=== PATIENT | female | born 1995 | race Caucasian/White ===

== ENCOUNTER 2018-04-21 01:52 | Inpatient (IN) | payer BC ==
[2018-04-21] MEDS ORDERED: Oxytocin 30 UNIT 30 UNITS/500 ML BAG IV ONE ×2 (02:49→04:34)
[2018-04-21] MEDS ORDERED: Lactated Ringer's 1,000 ML IV SCH (03:00)
[2018-04-21] MEDS ORDERED: Penicillin G 5 Million Unit Vial IVPB ONE (03:08)
[2018-04-21 03:42] LABS: BASO % 0.2 % (0.0-2.0); EOS # 0.1 K/uL (0.0-0.7); EOS % 0.7 % (0.0-4.0); HEMOGLOBIN 11.5 g/dL (11.0-16.0); LYMPH # 2.3 K/uL (1.0-4.3); LYMPH % 20.7 % (20.0-40.0); MEAN CELL VOLUME 71.7 fL (81.0-99.0); MEAN CORPUSCULAR HEMOGLOBIN 24.5 pg (27.0-31.0); MEAN CORPUSCULAR HGB CONC 34.2 g/dL (33.0-37.0); MEAN PLATELET VOLUME 8.7 fL (7.2-11.7); MONO # 0.8 K/uL (0.0-0.8); MONO % 6.9 % (0.0-10.0); NEUT % 71.5 % (50.0-75.0); RBC 4.7 Mil/uL (3.80-5.20); RED CELL DISTRIBUTION WIDTH 15.3 % (11.5-14.5); WHITE BLOOD COUNT 11.2 K/uL (4.8-10.8)
[2018-04-21 03:45] LABS: SQUAMOUS EPITHIAL < 1 /hpf (0-5); URINE BACTERIA RARE (<OCC); URINE BILIRUBIN NEGATIVE (NEGATIVE); URINE BLOOD NEGATIVE (NEGATIVE); URINE CLARITY Clear (Clear); URINE COLOR Straw (YELLOW); URINE GLUCOSE (UA) NORMAL (Normal); URINE LEUKOCYTE ESTERASE NEG Leu/uL (Negative); URINE PROTEIN NEGATIVE (NEGATIVE); URINE UROBILINOGEN NORMAL mg/dL (0.2-1.0)
[2018-04-21 03:58] LABS: ALB/GLOB RATIO 1.2 (1.0-2.1); ALBUMIN 3.8 g/dL (3.5-5.0); ALT/SGPT 21 U/L (9-52); AST/SGOT 15 U/L (14-36); BLOOD UREA NITROGEN 8 mg/dL (7-17); CALCIUM 8.9 mg/dl (8.6-10.4); GFR AFRICAN-AMERICAN > 60; GFR NON-AFRICAN AMERICAN > 60
[2018-04-21 04:29] LABS: HEPATITIS B SURFACE AG Negative (NEGATIVE)
[2018-04-21 06:43] LABS: T4 18.9 ug/dL (5.5-11.0)
[2018-04-21 06:56] LABS: T3 1.64 nmol/L (1.49-2.60)
--- NOTE | 2018-04-21 07:49 | OBHP ---
Datetime: 04/21/2018 02:30 IP Adm Impression: Term, intrauterine ; Ruptured Membranes IP Admit Plan: Admit to unit; Initiate labor augmentation protocol Admit Comment, IP Provider: 22 yo female G1 with an IUP at 37 3/7 weeks and present with a Hx of lar ge gush of clear fluid since 8 PM on 04/20 but later she changed her mind and she ruptured at 10PM. Adm its to adequate FM and denies any vaginal bleeding. FHT's reactive and reassuring + pooling of Amniotic fluid + Hx of Gestational Diabetes-diet Control and FS BS's from patient reviewed and WNL for the most p art Hx of Hypothyroidism and on 100 mcg daily GBS unknown Dr. Sheppard notified and she requested to be cover by Hospitalist Will admit patient and start on Pitocin for Augmentation of labor Pelvic Type - PN: Adequate Extremities - PN: Normal Abdomen - PN: Normal Back - PN: Normal Breast - PN: Not Done Lungs - PN: Normal Heart - PN: Normal Thyroid - PN: Normal Neurologic - PN: Normal HEENT - PN: Normal General - PN: Normal Presentation-Admit: Vertex FHR - Baseline A Provider: 130 Amniotic Fluid Color, Provider: Clear Membranes, Provider: Ruptured Gestation - Est Wks by US: 37 3/7 EGA AdmitDate IP: 37.3 Vital Signs Provider: Reviewed IP Chief Complaint: Suspected ruptured membranes NICHD Variability Prov Fetus A: Moderate 6-25bpm NICHD Accel Fetus A IP Provider: 10X10 FHR Category Provider Fetus A: Category I NICHD Decel Fetus A IP Provider: None Dilatation, Provider: 0 Effacement, Provider: 50 Station, Provider: -3 Genitourinary Exam: Normal DTRs - PN: Normal
--- NOTE | 2018-04-21 07:59 | OBADHP ---
Datetime: 04/21/2018 03:51 Admit Comment, IP Provider: 22 yo female G1 with an IUP at 37 3/7 weeks with SROM since 10 PM last n ite. Admits to adequate FM and denies any vaginal bleeding. FHT's reactive and reassuring + Hx of Gestational Diabetes-diet Control and FS BS's from patient reviewed and WNL for the most p art Hx of Hypothyroidism and on 100 mcg daily GBS unknown and will start on Antibiotic Prophylaxis Dr. Sheppard notified and she requested to be cover by Hospitalist Will admit patient and start on Pitocin for Augmentation of labor Anticipate a Vaginal Delivery Pelvic Type - PN: Adequate Extremities - PN: Normal Abdomen - PN: Normal Back - PN: Normal Breast - PN: Not Done Lungs - PN: Normal Heart - PN: Normal Thyroid - PN: Normal Neurologic - PN: Normal HEENT - PN: Normal General - PN: Normal FHR - Baseline A Provider: 130 Membranes, Provider: Ruptured Contraction Comments Provider: Ocassional Gestation - Est Wks by US: 37 3/7 Vital Signs Provider: Reviewed IP Chief Complaint: Suspected ruptured membranes FHR Category Provider Fetus A: Category I Dilatation, Provider: 0 Effacement, Provider: 50 Station, Provider: -3 Genitourinary Exam: Normal DTRs - PN: Normal EGA AdmitDate IP: 37.3 IP Adm Impression: Term, intrauterine ; Ruptured Membranes IP Admit Plan: Admit to unit; Initiate labor augmentation protocol Datetime: 04/21/2018 02:30 Presentation-Admit: Vertex Amniotic Fluid Color, Provider: Clear NICHD Variability Prov Fetus A: Moderate 6-25bpm NICHD Accel Fetus A IP Provider: 10X10 NICHD Decel Fetus A IP Provider: None
[2018-04-21] MEDS ORDERED: Nalbuphine HCL 10 mg/ml Ampule IVP STA (10:21)
[2018-04-21] MEDS ORDERED: Nalbuphine HCL 10 mg/ml Ampule ONE (10:56)
[2018-04-21] MEDS ORDERED: Lidocaine 2% MPF (5 ml) Inj ONE (14:38)
--- NOTE | 2018-04-21 14:52 | OBDS ---
MATERNAL INFORMATION Provider Comments: pt was fully dilated and pushing. Atrumatic, spontanous delivery of head. atrumat ic, spontanosud eliveyr of anterior followed by posterior soulder followed by delivery of the body. Both oral and nasal passages of the baby were bulb suctioned. Umbilical cord was clamped and cut. ba by handed to mother on abdomen with rn assistnace. fundus firm at level of umbilucs. first degree pe rineal laceration repaired with 2-0 chromic. good hemostasis ,no complicatins. live male ifnat agpars 9,9 ebl 200ml weight of 5lb 1 ounces LABOR SUMMARY EDC: 05/09/2018 00:00 MEMBRANES Membranes Rupture Method: Spontaneous Rupture of Membranes: 04/20/2018 20:00 Length of Rupture (hrs): 18.48 Amniotic Fluid Color: Clear Amniotic Fluid Amount: Moderate Amniotic Fluid Odor: Normal BABY A INFORMATION Infant Delivery Date/Time: 04/21/2018 14:29 Method of Delivery: Vaginal SHOULDER DYSTOCIA BABY A Infant Delivery Date/Time: 04/21/2018 14:29 SCORES BABY A Heart Rate 1 min: >100 bpm Resp Effort 1 min: Good Cry Reflex Irritability 1 min: Cough or Sneeze or Pulls Away Muscle Tone 1 min: Active Motion Color 1 min: Body [place], Extremities Blue SCORE 1 MIN: 9 Heart Rate 5 min: >100 bpm Resp Effort 5 min: Good Cry Reflex Irritability 5 min: Cough or Sneeze or Pulls Away Muscle Tone 5 min: Active Motion Color 5 min: Body [place], Extremities Blue SCORE 5 MIN: 9 INFORMATION BABY A Gestational Age at Delivery: 37.2 Infant Condition : Stable Infant Sex: Male IDENTIFICATION/MEDS BABY A ID Band Number: [id number] Sensor Number: [id number] WEIGHT/LENGTH BABY A Infant Birthweight (gms): 2305 Infant Weight (lb): 5 Infant Weight (oz): 1 Infant Length Inches: 18.50 Infant Length cms: 47.0
--- NOTE | 2018-04-21 14:52 | OBHP ---
Datetime: 04/21/2018 03:51 IP Adm Impression: Term, intrauterine ; Ruptured Membranes IP Admit Plan: Admit to unit; Initiate labor augmentation protocol Admit Comment, IP Provider: 22 yo female G1 with an IUP at 37 3/7 weeks with SROM since 10 PM last n ite. Admits to adequate FM and denies any vaginal bleeding. FHT's reactive and reassuring + Hx of Gestational Diabetes-diet Control and FS BS's from patient reviewed and WNL for the most p art Hx of Hypothyroidism and on 100 mcg daily GBS unknown and will start on Antibiotic Prophylaxis Dr. Sheppard notified and she requested to be cover by Hospitalist Will admit patient and start on Pitocin for Augmentation of labor Anticipate a Vaginal Delivery agree with aove @ 37+ wks GDMA1 with ROM in wearly labor prom admit for IOL Pelvic Type - PN: Adequate Extremities - PN: Normal Abdomen - PN: Normal Back - PN: Normal Breast - PN: Not Done Lungs - PN: Normal Heart - PN: Normal Thyroid - PN: Normal Neurologic - PN: Normal HEENT - PN: Normal General - PN: Normal FHR - Baseline A Provider: 130 Membranes, Provider: Ruptured Contraction Comments Provider: Ocassional Gestation - Est Wks by US: 37 3/7 EGA AdmitDate IP: 37.3 Vital Signs Provider: Reviewed IP Indication for Induction: Not Applicable IP Chief Complaint: Suspected ruptured membranes FHR Category Provider Fetus A: Category I Dilatation, Provider: 0 Effacement, Provider: 50 Station, Provider: -3 Genitourinary Exam: Normal DTRs - PN: Normal
[2018-04-21] MEDS ORDERED: Oxycodone/Acetaminophen 5/325 mg Tab PO PRN ×2 (14:53)
[2018-04-21] MEDS: Benzocaine/Menthol 20%-0.5% Topical Spray (60 ml) TOP PRN (17:17)
[2018-04-22 08:16] LABS: BASO % 0.3 % (0.0-2.0); EOS # 0.1 K/uL (0.0-0.7); EOS % 0.6 % (0.0-4.0); HEMOGLOBIN 10.2 g/dL (11.0-16.0); LYMPH # 2.7 K/uL (1.0-4.3); LYMPH % 20.9 % (20.0-40.0); MEAN CELL VOLUME 72.4 fL (81.0-99.0); MEAN CORPUSCULAR HEMOGLOBIN 24.2 pg (27.0-31.0); MEAN CORPUSCULAR HGB CONC 33.5 g/dL (33.0-37.0); MEAN PLATELET VOLUME 8.3 fL (7.2-11.7); MONO # 0.8 K/uL (0.0-0.8); NEUT # 9.4 K/uL (1.8-7.0); NEUT % 72.2 % (50.0-75.0); RBC 4.2 Mil/uL (3.80-5.20); RED CELL DISTRIBUTION WIDTH 15.6 % (11.5-14.5); WHITE BLOOD COUNT 13.1 K/uL (4.8-10.8)
[2018-04-22 08:41] LABS: ALB/GLOB RATIO 1.1 (1.0-2.1); ALBUMIN 2.9 g/dL (3.5-5.0); ALT/SGPT 26 U/L (9-52); AST/SGOT 29 U/L (14-36); BLOOD UREA NITROGEN 9 mg/dL (7-17); CALCIUM 9.5 mg/dl (8.6-10.4); GFR AFRICAN-AMERICAN > 60; GFR NON-AFRICAN AMERICAN > 60
--- NOTE | 2018-04-22 09:06 | OBPPN ---
Datetime: 04/22/2018 09:04 PP Pain Prov: Within normal limits PP Nausea Prov: Denies PP Flatus Prov: Yes PP BM Prov: No PP Breasts Prov: Normal PP Heart Prov: Normal PP Lungs Prov: Normal PP Abdomen/Uterus Prov: Normal PP Lochia Prov: Normal PP Vulva/Perineum Prov: Normal PP CVA Tenderness Prov: Normal PP Extremities Prov: Normal PP C/S Incision Prov: Not Applicable PP Progress Prov: Normal PP Impression Prov: Normal progression PP Plan Prov: Continue present management PP Progress Note Prov: pt seen and examiend adn reprots pain controlled with medication. pt denies a ny fever, chills nause, vomiting, cp, sob. pt ambuaitnv, voidng, passing flatus, brest feeding VSS PE GEN NAD AA ox 3 RESP: CTAB?l CVS: RRR, +S1/S2 ABDS: soft, NT, ND, no ugaridn no reboudn tendnere, no rgidty FUNDUS: Firm, at level of ubmilucs VE: minimal locha, non foul smelling EXT: no calf tennder negative lilia's sign A/P s/p PPD #1 doignw el f/u am cbc pain manamgnet encourage breast feeding and ambauting IP PP Procedures: None Vital Signs Provider PP: Reviewed; Within Normal Limits
--- NOTE | 2018-04-22 09:09 | OBDCSUM ---
Datetime: 04/22/2018 09:06 Discharged to, Provider: Home Follow up at, Provider: Dr Sheppard Disch Instr Activity: Normal activity Disch Instr Diet: Regular Discharge Instructions, Provider: Routine instructions given Discharge Diagnosis, Provider: Term Delivered Discharge Time: 04/23/2018 09:06 Follow up in weeks, Provider: 6 weeks Disch Referrals: None Contraception discussed, Prov: Yes Disch Activity Restrictions: No sexual activity; Nothing in vagina - [place], tampons, douche Discharge Comment, Provider: dc in am Contraception after Delivery: Not Planning to Use
[2018-04-22] MEDS: Multiple Vitamins Tab PO SCH (09:12)
[2018-04-23] MEDS ORDERED: Levothyroxine 100 MCG TAB PO SCH (08:45)
[2018-04-23] MEDS: Multiple Vitamins Tab PO SCH (09:24)
[2018-04-23] MEDS: Benzocaine/Menthol 20%-0.5% Topical Spray (60 ml) TOP PRN (18:30)
[2018-04-24 04:06] VITALS: BP 101/73; PULSE 75; RESP 20; TEMP 98.7; O2SAT 98
== END 2018-04-23 23:00 | disposition home or self-care (01) | DRG 775 ==
LOC: C.EROB 01:52 → C.4LDOR 02:49 → C.4D 04:29 → C.4M 16:32
PROVIDERS: ADMIT Obstetrics & Gynecology; ATTEND Obstetrics & Gynecology
PROC: 10E0XZZ Delivery of Products of Conception, External Approach (ICD-10-PCS; principal; 2018-04-21)
PROC: 0HQ9XZZ Repair Perineum Skin, External Approach (ICD-10-PCS; 2018-04-21)
DX: O24.420 Gestational diabetes mellitus in childbirth, diet controlled (principal); O99.284 Endocrine, nutritional and metabolic diseases complicating childbirth; E03.9 Hypothyroidism, unspecified; O70.0 First degree perineal laceration during delivery; Z3A.37 37 weeks gestation of pregnancy; Z37.0 Single live birth